=== PATIENT | male | born 1970 | race Caucasian/White ===

== ENCOUNTER 2022-04-15 12:04 | Emergency (ER) | payer SELFPAY ==
[~2022-04-15] VITALS: Ht 180.3 cm; Wt 82.7 kg
[2022-04-15] MEDS ORDERED: KETOROLAC 30 MG/ML VIAL IVP STA (12:16)
[2022-04-15] MEDS ORDERED: ORPHENADRINE 60 MG/2 ML (NORFLEX) AMP (ED ONLY) IVP STA (12:16)
--- NOTE | 2022-04-15 12:20 | ED Back Pain ---
General Stated Complaint: BACK INJ Source of Information: Patient History of Present Illness Date Seen by Provider: Apr 15, 2022 Time Seen by Provider: 12:04 Initial Comments 51 yo male presenting by EMS with acute on chronic low back pain. 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 He is self-employed. He denies any acute known injury to his back. He had had sudden onset of more severe pain last night while he was in bed. He thought maybe he twisted in bed to flareup his back. He denies any pain ra diating down his legs. He has had no loss of bowel or bladder control. He has not taken anything at home for pain. Normally he just takes dwxs-vci-yhznong pills. Location: Lumbar Spine, Paraspinous Muscles Timing/Duration: 1 Day Severity: Severe Pain/Injury Location: Back (Lumbar back) Method of Injury: Unknown Modifying Factors: Worse With Movement Associated Symptoms: muscle spasms; No fever, No weakness, No numbness in legs/feet, No tingling in legs/feet, No sensory/motor loss; lower back pain; No loss of bladder control, No loss of bowel control Allergies and Home Medications Allergies Coded Allergies: No Known Drug Allergies (Unverified , 04/15/22) Patient Home Medication List Home Medication List Reviewed: Yes Hydrocodone/Acetaminophen (Hydrocodone-Acetamin 5-325 mg) 5 Mg-325 Mg Tablet, 1 TAB PO Q6H PRN for PAIN-SEVERE (8-10) Prescribed by: GABY JUNE on 04/15/22 1523 Ibuprofen (Ibuprofen) 800 Mg Tablet, 800 MG PO Q8H PRN for PAIN Prescribed by: GABY JUNE on 04/15/22 1523 Methocarbamol (Methocarbamol) 750 Mg Tablet, 1,500 MG PO Q8H PRN for MUSCLE SPASMS Prescribed by: GABY JUNE on 04/15/22 1523 Review of Systems Constitutional: No chills, No fever EENTM: no symptoms reported Respiratory: no symptoms reported Cardiovascular: no symptoms reported Gastrointestinal: no symptoms reported Genitourinary: no symptoms reported Musculoskeletal: see HPI Skin: No change in color Psychiatric/Neurological: Denies Numbness, Denies Paresthesia Past Jljaeht-Bokrtt-Kaqxbu Hx Past Medical History Surgery/Hospitalization HX: Chronic lumbar spine pain Physical Exam Vital Signs Vital Signs - First Documented 04/15/22 12:07 Temp 36.5 Pulse 76 Resp 14 B/P (MAP) 115/68 (84) Pulse Ox 97 O2 Delivery Room Air Capillary Refill : Height, Weight, BMI Height: '" Weight: lbs. oz. kg; BMI Method: General Appearance: No Apparent Distress HEENT: PERRL/EOMI, Pharynx Normal Neck: Full Range of Motion, Normal Inspection, Non Tender, Supple Cardiovascular: Regular Rate, Rhythm, Normal Peripheral Pulses Respiratory: Chest Non Tender, Lungs Clear, Normal Breath Sounds, No Accessory Muscle Use, No Respiratory Distress Gastrointestinal: Normal Bowel Sounds, No Organomegaly, No Pulsatile Mass, Non Tender, Soft Back: No CVA Tenderness (L), No CVA Tenderness (R); Muscle Spasm; No Vertebral Tenderness Extremity: Normal Capillary Refill, Normal Inspection, Non Tender, No Calf Tenderness, No Pedal Edema Neurologic/Psychiatric: Alert, Oriented x3, him specialists II-XII Norm as Tested Skin: Normal Color, Warm/Dry Progress/Results/Core Measures Results/Orders My Orders Orders - GABY JUNE MD Ketorolac Injection (Toradol Injection) (04/15/22 12:16) Dexamethasone Injection (Decadron Inje (04/15/22 12:16) Orphenadrine Inj (Ed Only) (Norflex Inje (04/15/22 12:16) Ct Lumbar Spine Wo (04/15/22 12:16) Hydrocodone/Apap 5/325 Tablet (Lortab 5 (04/15/22 14:03) Methylprednisolone Acetate Inj (Depo-Med (04/15/22 14:03) Vital Signs/I&O 04/15/22 04/15/22 12:07 14:36 Temp 36.5 Pulse 76 74 Resp 14 12 B/P (MAP) 115/68 (84) 107/76 Pulse Ox 97 97 O2 Delivery Room Air Room Air Progress Progress Note #1: Progress Note His pain was improved with fentanyl from EMS. Give Toradol, Norflex, Decadron to try and help from inflammation and spasm standpoint. Obtain CT scan of the lumbar spine to look for acute injury. Progress Note #2: Progress Note Patient reports continued improvement in his pain after medications here. CT scan does not show acute process in his lumbar spine. Reassured patient and will give Depo-Medrol IM to help with pain and inflammation. Administer first dose of hydrocodone here to help with his pain. Prescription for ibuprofen and methocarbamol for muscle relaxer were sent to the pharmacy. We will also send a few hydrocodone for severe pain. Counseled to check back with the clinic as he may need physical therapy or spine referral if he continues to have symptoms. Diagnostic Imaging Diagonstic Imaging: CT Plain Films/CT/US/NM/MRI: other (lumbar spine) Comments [facility], [place] NAME: CHEYANNE ALEXANDER [facility] REC#: [id number] PT STATUS: REG ER : 04/24/1972 PHYSICIAN: GABY JUNE MD ADMIT DATE: 04/15/22/ER FS Signed Date of Exam:04/15/22 CT LUMBAR SPINE WO PROCEDURE: CT lumbar spine without contrast. TECHNIQUE: Multiple contiguous axial images were obtained through the lumbar spine without the use of intravenous contrast. Sagittal and coronal reformations were then performed. Auto Exposure Controls were utilized during the CT exam to meet ALARA standards for radiation dose reduction. INDICATION: Acute on chronic low back pain. COMPARISON: None. FINDINGS: No acute fracture or dislocation is seen in the lumbar spine. Alignment is anatomic. No focal osseous lesions are seen. No evidence of acute spinal canal stenosis. No high density material seen within spinal canal. The paraspinal soft tissues are unremarkable. IMPRESSION: 1. No acute fracture or dislocation in the lumbar spine. Dictated by: Dictated on workstation # [id number] Dict: 04/15/22 1308 Trans: 04/15/22 1347 [facility] [id number] Interpreted by: JENNIFER FOFANA DO Electronically signed by: JENNIFER FOFANA DO 04/15/22 1347 Reviewed: Reviewed by Vt Departure Impression Primary Impression: Acute exacerbation of chronic low back pain Additional Impression: Strain of lumbar paraspinous muscle Qualified Codes: S39.012A - Strain of muscle, fascia and tendon of lower back, initial encounter Disposition: 01 HOME, SELF-CARE Condition: Stable Departure-Patient Inst. Decision time for Depature: 14:06 Referrals: [facility] Patient Instructions: Opioids for Short-Term Treatment of Pain ED, Muscle Strain ED, Low Back Pain ED, Using Cold for Pain Add. Discharge Instructions: Try alternating cold and hot packs to your back to help with inflammation of your muscles in your back. Take the anti-inflammatory medicine with muscle relaxer to help with back strain and pain. For severe pain may take the Hydrocodone/Acetaminophen pain pill. If you do have to take the narcotic pain pill consider taking Miralax or a laxative to help keep your stools soft and regular so you are not straining. Check back with clinic as you may need physical therapy or referral for spine doctor if you continue to have pain. You did get a steroid shot here in the ER that will help over the next 7 to 10 days. Scripts Methocarbamol (Methocarbamol) 750 Mg Tablet 1500 MG PO Q8H PRN for MUSCLE SPASMS for 10 Days, #60 TAB 0 Refills Prov: GABY JUNE MD 04/15/22 Hydrocodone/Acetaminophen (Hydrocodone-Acetamin 5-325 mg) 5 Mg-325 Mg Tablet 1 TAB PO Q6H PRN for PAIN-SEVERE (8-10) for 5 Days, #20 TAB 0 Refills Prov: GABY JUNE MD 04/15/22 Ibuprofen (Ibuprofen) 800 Mg Tablet 800 MG PO Q8H PRN for PAIN for 10 Days, #30 TAB 0 Refills Prov: GABY JUNE MD 04/15/22 Images Torso/Trunk 1 - Tenderness (paraspinal muscle spasms with tenderness. no vertebral tenderness to palpation. no bruising, stepoff, deformity) GABY JUNE MD Apr 15, 2022 12:20
--- NOTE | 2022-04-15 13:44 | Diagnostic Imaging Report ---
PROCEDURE: CT lumbar spine without contrast. TECHNIQUE: Multiple contiguous axial images were obtained through the lumbar spine without the use of intravenous contrast. Sagittal and coronal reformations were then performed. Auto Exposure Controls were utilized during the CT exam to meet ALARA standards for radiation dose reduction. INDICATION: Acute on chronic low back pain. COMPARISON: None. FINDINGS: No acute fracture or dislocation is seen in the lumbar spine. Alignment is anatomic. No focal osseous lesions are seen. No evidence of acute spinal canal stenosis. No high density material seen within spinal canal. The paraspinal soft tissues are unremarkable. IMPRESSION: 1. No acute fracture or dislocation in the lumbar spine. Dictated by: Dictated on workstation # [id number]
[2022-04-15] MEDS ORDERED: methylPREDNISolone 80 MG/ML (DEPO MEDROL) VIAL IM STA (14:03)
[2022-04-15] MEDS ORDERED: HYDROcodone/APAP 5 MG/325 MG (LORTAB) TAB PO STA (14:03)
[2022-04-15] MEDS ORDERED: METH-732 PO ×2 (14:10→15:23)
[2022-04-15] MEDS ORDERED: IBUP-1780 PO ×2 (14:10→15:23)
[2022-04-15] MEDS ORDERED: ACHD5005 PO ×2 (14:10→15:23)
[2022-04-15 14:36] VITALS: BP 107/76
== END 2022-04-15 14:36 | disposition home or self-care (01) ==
LOC: EDBD 12:05 → ER FS 12:05
DX: S39.012A Strain of muscle, fascia and tendon of lower back, initial encounter (principal); Z28.310 Unvaccinated for COVID-19; X50.1XXA Overexertion from prolonged static or awkward postures, initial encounter; Y92.59 Other trade areas as the place of occurrence of the external cause; Y99.0 Civilian activity done for income or pay
CPT/HCPCS: 72131